=== PATIENT | female | born 1990 | race Caucasian/White ===

== ENCOUNTER 2019-09-03 12:59 | Emergency (ER) | payer OTHER ==
[~2019-09-03] VITALS: Ht 167.6 cm; Wt 110.0 kg
[2019-09-03 13:27] VITALS: BP 141/81
[2019-09-03] MEDS ORDERED: IPRATRPIUM/ALBUTEROL 0.5/2.5MG 3 ML NEBU. NEB ONE (13:30)
[2019-09-03 13:52] LABS: INFLUENZA A PATIENT NEGATIVE (NEGATIVE); INFLUENZA B PATIENT NEGATIVE (NEGATIVE)
--- NOTE | 2019-09-03 14:07 | RAD ---
Examination: CHEST AP ONLY History: Shortness of breath Comparison: 03/27/2012 chest x-ray exam. Findings: AP portable upright frontal view of the chest was obtained. The cardiomediastinal silhouette is normal. Lungs are clear. There is no pneumothorax. No pleural effusion is appreciated. No acute bone abnormality. IMPRESSION: No acute cardiopulmonary process. Electronically signed by: Jose R Kong MD (09/03/2019 2:04 PM) [id number]
--- NOTE | 2019-09-03 14:33 | PHYS DOC ---
Past Medical History Past Medical History: Anxiety, Depression, Other Additional Past Medical Histor: GEN DEPRESSIVE MENTAL DISORDER, EXTREME SOCIAL ANXIETY,borderline Past Surgical History: Other Additional Past Surgical Histo: WISDOM TEETH Smoking Status: Never Smoker Alcohol Use: Rarely Drug Use: None Adult General Chief Complaint Chief Complaint: FLU SYMPTOM HPI HPI Patient is a 28 year old F who is here with cough, congestion, sore throat and fever since . She states she gets bronchitis every year and this feels similar. She did call her doctors office yesterday to let them know she wasn't feeling well and they recommended she quarantine and to call them back if symptoms worsen. She states today she is feeling worse and couldn't get in to be seen. Review of Systems Review of Systems Constitutional: Denies fever or chills HENT: Reports nasal congestion and sore throat Respiratory: Reports cough and wheezing Cardiovascular: Denies chest pain GI: Denies abdominal pain, nausea, vomiting, bloody stools or diarrhea Musculoskeletal: Denies back pain or joint pain Integument: Denies rash or skin lesions Neurologic: Denies headache, focal weakness or sensory changes All other systems were reviewed and found to be within normal limits, except as documented in this note. Current Medications Current Medications Current Medications Medications (Trade) Dose Ordered Sig/Paco Start Time Stop Time Status Last Admin Dose Admin Albuterol/ Ipratropium (Duoneb) 3 ml 1X ONCE 09/03/19 13:30 09/03/19 13:31 DC 09/03/19 13:59 3 ML Allergies Allergies Allergies Coded Allergies Type Severity Reaction Last Updated Verified cefixime Allergy Mild 02/21/14 No Physical Exam Physical Exam Constitutional: Well developed, well nourished, no acute distress, non-toxic appearance. HENT: Normocephalic, atraumatic, bilateral external ears normal, oropharynx moist, no oral exudates, nose normal. Pharyngeal erythema Neck: Normal range of motion, no tenderness, supple, no stridor. Cardiovascular:Heart rate regular rhythm, no murmur Lungs & Thorax: Wheezing, mild scattered, worse R lung Abdomen: Bowel sounds normal, soft, no tenderness, no masses, no pulsatile masses. Skin: Warm, dry, no erythema, no rash. Back: No tenderness, no CVA tenderness. Extremities: No tenderness, no cyanosis, no clubbing, ROM intact, no edema. Neurologic: Alert and oriented X 3, normal motor function, normal sensory function, no focal deficits noted. Psychologic: Affect normal, judgement normal, mood normal. Current Patient Data Vital Signs Vital Signs Date Time Temp Pulse Resp B/P (MAP) Pulse Ox O2 Delivery O2 Flow Rate FiO2 09/03/19 14:00 95 Room Air 09/03/19 13:27 98.9 111 18 141/81 (101) 98.9 Lab Values Laboratory Tests Test 09/03/19 13:10 09/03/19 13:40 Influenza Type A Antigen Negative (NEGATIVE) Influenza Type B Antigen Negative (NEGATIVE) Group A Streptococcus Rapid Negative (NEGATIVE) EKG EKG [] Radiology/Procedures Radiology/Procedures CXR: Neg Course & Med Decision Making Course & Med Decision Making Swabs and CXR neg, vitals stable, pt feeling better after neb. Discussed bronchitis. Will cover with albuterol, prednisone and phenergan DM syrup, however I did talk with pt about how I would like to do low dose of steroid for 5 days only since if this is CoVid 19, steroids have been shown to possibly cause worsening symptoms. However, if not CoVid 19m then steroids could significantly help her wheezing and bronchial inflammation. Discussed following CoVid 19 guidelines of quarantine for 14 days and rest and symptomatic treatment. Pt to return with any worsening symptoms. Dragon Disclaimer Dragon Disclaimer This electronic medical record was generated, in whole or in part, using a voice recognition dictation system. Departure Departure Impression: Primary Impression: Bronchitis Additional Impression: Viral syndrome Disposition: 01 HOME, SELF-CARE Condition: IMPROVED Referrals: TERRANCE RAMOS MD (PCP) Patient Instructions: Bronchitis, [id number], Viral Syndrome Additional Instructions: Your strep and flu swabs were negative and your chest xray does not show pneumonia. At this time we are calling this bronchitis and viral syndrome but please know we cannot rule out coronavirus at this time and since you are stable to go home, they are not recommending testing at this time since the treatment would be the same. We treat the symptoms and have you return or see your doctor with any worsening symptoms. Please return with any increased shortness of breath or chest pain or high fevers or concern for dehydration. Scripts Promethazine/Dextromethorphan (Promethazine-Dm Syrup) 473 Ml Syrup 5 ML PO PRN Q6HRS PRN for cough for 6 Days, #120 ML 0 Refills Prov: REYES LEBLANC 09/03/19 Prednisone (PREDNISONE) 20 Mg Tablet 1 TAB PO DAILY, #5 TAB Prov: REYES LEBLANC 09/03/19 Albuterol Sulfate (PROAIR HFA INHALER) 8.5 Gm Hfa.aer.ad 2 PUFF IH PRN Q4-6HRS PRN for wheezing for 21 Days, #1 INHALER 0 Refills Prov: REYES LEBLANC 09/03/19 Problem Qualifiers REYES LEBLANC Sep 03, 2019 14:33
[2019-09-03] MEDS ORDERED: ALBU2.5V8 IH (14:38)
[2019-09-03] MEDS ORDERED: PRED20TA PO (14:38)
[2019-09-03] MEDS ORDERED: D-ME473S14 PO (14:38)
== END 2019-09-03 14:50 | disposition home or self-care (01) ==
LOC: ER 12:59
DX: J40 Bronchitis, not specified as acute or chronic (principal); B34.9 Viral infection, unspecified; Z88.1 Allergy status to other antibiotic agents
CPT/HCPCS: 71045; 87070; 87804; 87880; 94640; 99284